=== PATIENT | male | born 1995 | race Caucasian/White ===

== ENCOUNTER 2018-09-04 16:26 | Inpatient (IN) | payer OTHER ==
[2018-09-04] MEDS ORDERED: HYDROmorphONE/DILAUDID 2 MG/ML INJ IVP ONE ×2 (16:29→17:04)
[2018-09-04] MEDS ORDERED: NS 1,000 ML IV ONE (16:29)
--- NOTE | 2018-09-04 16:33 | EDPHY ---
H & P Time Seen by Provider: 09/04/18 16:31 HPI/ROS: CHIEF COMPLAINT: Left hip pain HISTORY OF PRESENT ILLNESS: The patient is a 23-year-old man who was climbing on a rock wall when he fell approximately 10 ft to the ground. He was trying to avoid another climber and fell in an awkward position doing the splits. He felt a pop in his left hip and has had pain ever since. No knee pain or back pain. No head or neck injury. No foot or ankle pain. Severity: Severe Modifying factors: Improved with 100 mcg fentanyl by EMS REVIEW OF SYSTEMS: Constitutional: denies: chills, fever, recent illness, recent injury EENTM: denies: blurred vision, double vision, nose congestion Respiratory: denies: cough, shortness of breath Cardiac: denies: chest pain, irregular heart rate, lightheadedness, palpitations Gastrointestinal/Abdominal: denies: abdominal pain, diarrhea, nausea, vomiting, blood streaked stools Genitourinary: denies: dysuria, frequency, hematuria, pain Musculoskeletal: See HPI Skin: denies: lesions, rash, jaundice, bruising Neurological: denies: headache, numbness, paresthesia, tingling, dizziness, weakness Hematologic/Lymphatic: denies: blood clots, easy bleeding, easy bruising Immunologic/allergic: denies: HIV/AIDS, transplant 10 systems reviewed and negative except as noted EXAM: GENERAL: Well-appearing, well-nourished and in no acute distress. HEAD: Atraumatic, normocephalic. EYES: Pupils equal round and reactive to light, extraocular movements intact, sclera anicteric, conjunctiva are normal. ENT: TMs normal, nares patent, oropharynx clear without exudates. Moist mucous membranes. NECK: Normal range of motion, supple without lymphadenopathy or JVD. LUNGS: Breath sounds clear to auscultation bilaterally and equal. No wheezes rales or rhonchi. HEART: Regular rate and rhythm without murmurs, rubs or gallops. ABDOMEN: Soft, nontender, normoactive bowel sounds. No guarding, no rebound. No masses appreciated. BACK: No CVA tenderness, no spinal tenderness, step-offs or deformities EXTREMITIES: Left leg slightly shortened and internally rotated. Normal pulses and sensation distally. No knee pain. Primary complaining of left proximal humerus pain NEUROLOGICAL: Cranial nerves II through XII grossly intact. Normal speech, normal gait. 5/5 strength, normal movement in all extremities, normal sensation , normal reflexes PSYCH: Normal mood, normal affect. SKIN: Warm, dry, normal turgor, no visible rashes or lesions. Source: Patient, EMS Exam Limitations: No limitations - Medical/Surgical History Hx Asthma: No Hx Chronic Respiratory Disease: No Hx Diabetes: No Hx Cardiac Disease: No Hx Renal Disease: No Hx Cirrhosis: No Hx Alcoholism: No Hx HIV/AIDS: No - Family History Significant Family History: No pertinent family hx - Social History Alcohol Use: Sober Drug Use: None Constitutional: Initial Vital Signs Temperature (C) 36.9 C 09/04/18 16:26 Heart Rate 92 09/04/18 16:26 Respiratory Rate 16 09/04/18 16:26 Blood Pressure 129/90 H 09/04/18 16:26 O2 Sat (%) 100 09/04/18 16:26 O2 Delivery Mode Room Air Allergies/Adverse Reactions: No Known Allergies Allergy (Verified 09/04/18 17:24) Home Medications: Medication Instructions Recorded Herbals/Supplements -Info Only 1 ea PO DAILY 09/04/18 Multivitamins [Multivitamin (*)] 1 each PO DAILY 09/04/18 Medical Decision Making - Diagnostics Imaging: I viewed and interpreted images myself (Midshaft femur fracture) ED Course/Re-evaluation: Discussed the x-ray results and reviewed the images. I have paged Orthopedics. 5:00 p.m. discussed the case with Dr. Arroyo who will admit and plan to operate this evening. Differential Diagnosis: Partial list of the Differential diagnosis considered include but were not limited to; femur fracture, hip fracture, pelvic fracture and although unlikely based on the history and physical exam, I also considered dislocation, vascular injury, nerve injury. - Data Points Laboratory Results: Laboratory Results 09/04/18 16:37 09/04/18 16:37 Medications Given: Enoxaparin Sodium (Lovenox) 40 mg SC DAILY ANISA Stop: 03/04/19 08:59 Last Admin: 09/05/18 13:19 Dose: 40 mg Hydromorphone HCl (Dilaudid) 1 - 2 mg IVP Q1 PRN PRN Reason: PAIN, BREAKTHROUGH Stop: 09/14/18 18:42 Last Admin: 09/05/18 07:24 Dose: 1 mg Dextrose/Sodium Chloride (D5w 1/2 Ns) 1,000 mls @ 100 mls/hr IV CONT ANISA Stop: 03/03/19 18:59 Last Admin: 09/05/18 00:37 Dose: 1,000 mls Cefazolin Sodium/Dextrose (Ancef) 100 mls @ 200 mls/hr IV Q8H ANISA PRN Reason: Protocol Stop: 10/05/18 03:59 Last Admin: 09/05/18 13:19 Dose: 100 mls Oxycodone HCl (Oxycodone Ir) 5 - 15 mg PO Q3HRS PRN PRN Reason: Pain, Severe Able to Take PO Stop: 09/14/18 19:21 Last Admin: 09/05/18 11:34 Dose: 10 mg Discontinued Medications Bupivacaine HCl (Sensorcaine 0.5% Vial) Confirm Administered Dose 30 ml .ROUTE .STK-MED ONE Stop: 09/04/18 19:24 Last Admin: 09/04/18 22:30 Dose: 10 ml Hydromorphone HCl (Dilaudid) 1 mg IVP EDNOW ONE Stop: 09/04/18 16:30 Last Admin: 09/04/18 16:40 Dose: 1 mg Hydromorphone HCl (Dilaudid) 1 mg IVP EDNOW ONE Stop: 09/04/18 17:05 Last Admin: 09/04/18 17:18 Dose: 1 mg Sodium Chloride (Ns) 1,000 mls @ 0 mls/hr IV ONCE ONE; Wide Open PRN Reason: Protocol Stop: 09/04/18 16:30 Last Admin: 09/04/18 16:41 Dose: 1,000 mls Lactated Ringer's (Lr) 1,000 mls @ 0 mls/hr IV ONCE ONE PRN Reason: As Directed Stop: 09/04/18 18:56 Last Admin: 09/04/18 19:14 Dose: 1,000 mls Cefazolin Sodium/Dextrose (Ancef) 100 mls @ 200 mls/hr IV ONCALL ONE PRN Reason: Protocol Stop: 09/04/18 19:56 Last Admin: 09/04/18 20:10 Dose: 100 mls Labetalol HCl (Trandate Injection) 5 - 10 mg IVP Q10M PRN PRN Reason: PACU, Hypertension Stop: 09/05/18 00:00 Last Admin: 09/04/18 23:07 Dose: 5 mg Midazolam HCl (Versed) 2 mg IVP ONCALL ONE Stop: 09/04/18 19:38 Last Admin: 09/04/18 19:55 Dose: 2 mg Departure - Departure Disposition: [facility] Inpatient Acute Clinical Impression: Femur fracture, left Qualifiers: Encounter type: initial encounter Femur location: shaft Fracture type: closed Fracture morphology: oblique Fracture alignment: displaced Qualified Code(s): S72.332A - Displaced oblique fracture of shaft of left femur, initial encounter for closed fracture Condition: Fair
[2018-09-04 16:42] LABS: PLATELET COUNT 308 10^3/uL (150-400)
[2018-09-04 16:51] LABS: PROTIME(PATIENT) 13.4 SEC (12.0-15.0)
[2018-09-04] MEDS ORDERED: HYDROmorphONE/DILAUDID 1 MG/ML INJ ONE (17:15)
[2018-09-04] MEDS ORDERED: LR 1,000 ML IV ONE (18:55)
[2018-09-04] MEDS ORDERED: D5W 1/2 NS 1,000 ML IV SCH (19:00)
[2018-09-04] MEDS ORDERED: HYDROmorphONE/DILAUDID 2 MG/ML INJ ONE ×2 (19:21→22:15)
[2018-09-04] MEDS ORDERED: PROMETHAZINE HCL 25 MG/ML INJ IVP PRN ×2 (19:22→22:56)
[2018-09-04] MEDS ORDERED: NALOXONE HCL 0.4 MG/ML INJ IVP PRN ×2 (19:22→22:56)
[2018-09-04] MEDS ORDERED: ONDANSETRON 4 MG/2 ML VIAL IVP PRN (19:22)
[2018-09-04] MEDS ORDERED: HYDROmorphONE/DILAUDID 6 MG/30 ML PCA IV PRN (19:22)
[2018-09-04] MEDS ORDERED: BUPIVACAINE 0.5% 30 ML SDV ONE (19:23)
[2018-09-04] MEDS: HYDROmorphONE/DILAUDID 1 MG/ML INJ IVP PRN (19:23)
[2018-09-04] MEDS ORDERED: ceFAZolin 2 GM/DEXTROSE 100 ML IV ONE (19:27)
--- NOTE | 2018-09-04 19:29 | POSTOPPROG ---
Post Op Note Date of Operation: 09/04/18 Surgeon: Cristian Arroyo Anesthesia: GET(General Endotracheal) Pre-op Diagnosis: L femur fx Post-op Diagnosis: same Procedure: IM nail L femur Inf/Abcess present in the surg proc area at time of surgery?: No EBL: 50-100
[2018-09-04] MEDS ORDERED: D5W 1/2 NS W/ 20 KCl/L 1,000 ML IV SCH (19:30)
[2018-09-04] MEDS ORDERED: MIDAZOLAM 2 MG/2 ML VIAL IVP ONE (19:37)
--- NOTE | 2018-09-04 19:41 | PDANEPAE ---
ANE History of Present Illness Left FEMUR fx = ANE Past Medical History - Cardiovascular History Hx Hypertension: No Hx Arrhythmias: No Hx Chest Pain: No Hx Coronary Artery / Peripheral Vascular Disease: No Hx CHF / Valvular Disease: No Hx Palpitations: No - Pulmonary History Hx COPD: No Hx Asthma/Reactive Airway Disease: No Hx Recent Upper Respiratory Infection: No Hx Oxygen in Use at Home: No Hx Sleep Apnea: No - Endocrine History Hx Diabetes: No Hypothyroid: No Hyperthyroid: No Obesity: no ANE Review of Systems Review of systems is: negative Review of Systems: - Exercise capacity METS (RN): 4 METS ANE Patient History - Allergies Allergies/Adverse Reactions: No Known Allergies Allergy (Verified 09/04/18 17:24) - Home Medications Home Medications: Herbals/Supplements -Info Only 1 ea PO DAILY 09/04/18 [Last Taken 09/04/18] Multivitamins [Multivitamin (*)] 1 each PO DAILY 09/04/18 [Last Taken 09/04/18] - NPO status NPO Since - Liquids (Date): 09/04/18 NPO Since - Liquids (Time): 14:00 NPO Since - Solids (Date): 09/04/18 NPO Since - Solids (Time): 14:00 - Anes Hx Anes Hx: no prior problems - Smoking Hx Smoking Status: Never smoked Marijuana use: Yes - Alcohol Use Alcohol Use: Sober - Family Anes Hx Family Anes Hx: none ANE Labs/Vital Signs - Labs Result Diagrams: 09/04/18 16:37 09/04/18 16:37 - Vital Signs Blood Pressure: 143/98 Heart Rate: 106 Respiratory Rate: 19 O2 Sat (%): 96 Height: 172.72 cm Weight: 56.699 kg ANE Physical Exam - Airway Neck exam: FROM Mallampati Score: Class 3 Mouth exam: normal dental/mouth exam, small mouth opening - Pulmonary Pulmonary: no respiratory distress, no rales or rhonchi - Cardiovascular Cardiovascular: regular rate and rhythym, no murmur, rub, or gallop - ASA Status ASA Status: I, E ANE Anesthesia Plan Anesthesia Plan: general endotracheal anesthesia Specialized Airway: video laryngoscope
--- NOTE | 2018-09-04 19:45 | GHP ---
[f rep st] PREOP HISTORY AND PHYSICAL DATE OF ADMISSION: 09/04/2018 CHIEF COMPLAINT: Left thigh pain. HISTORY OF PRESENT ILLNESS: Patient is a 23-year-old who on the day of admission sustained a fall of approximately 10 feet while rock climbing, resulting in immediate thigh pain and deformity. He was taken to the emergency room directly from the climbing gym for evaluation. He denies any previous pr oblems or injuries relative to his leg. PAST MEDICAL HISTORY: Unremarkable. MEDICATIONS: Takes no medicines. ALLERGIES: Lists no known drug allergies. SOCIAL HISTORY: Negative for tobacco use. PHYSICAL EXAMINATION: GENERAL: He is alert and oriented x3, in mild distress secondary to his thigh pain. HEENT: Head is normocephalic. Pupils equal, round, reactive to light. Extraocular eye move ments intact. NECK: Supple. No JVD or lymphadenopathy. CHEST: Clear to auscultation. HEART: Re gular rate and rhythm. No murmurs or gallops. ABDOMEN: Soft, nontender, and nondistended. No orga nomegaly. GENITAL/RECTAL/BREASTS: Deferred. EXTREMITIES: There is swelling and tenderness in his left thigh. His leg is in a shortened internally rotated position. His distal neurovascular exam is grossly intact. IMAGING: AP and lateral radiographs of his femur show evidence of an oblique proximal diaphyseal fem ur fracture. ASSESSMENT: Left femur fracture. PLAN: Patient is scheduled to undergo closed intramedullary nailing. /[id number]/MODL
[2018-09-04] MEDS ORDERED: PROPOFOL/EMULSION 500 MG/50 ML BOTTLE IV ONE ×2 (19:55)
[2018-09-04] MEDS ORDERED: fentaNYL 250 MCG/5 ML INJ ONE (19:55)
[2018-09-04] MEDS ORDERED: GLYCOPYRROLATE 0.2 MG/1 ML VIAL ONE ×3 (19:56→22:29)
[2018-09-04] MEDS ORDERED: ROCURONIUM 50 MG/5 ML VIAL ONE ×2 (20:39)
[2018-09-04] MEDS ORDERED: ONDANSETRON 4 MG/2 ML VIAL ONE (22:13)
[2018-09-04] MEDS ORDERED: NEOSTIGMINE METHYLSULFATE 5 MG/5 ML SYR ONE (22:29)
[2018-09-04] MEDS ORDERED: LR 500 ML IV PRN (22:56)
[2018-09-04] MEDS ORDERED: HYDROmorphONE/DILAUDID 2 MG/ML INJ IVP PRN (22:56)
[2018-09-04] MEDS ORDERED: fentaNYL 100 MCG/2 ML INJ IVP PRN (22:56)
[2018-09-04] MEDS ORDERED: HYDROCODONE/APAP 5/325 TAB PO PRN (22:56)
[2018-09-04] MEDS ORDERED: LABETALOL HCL 20 MG/4 ML INJ IVP ONE (22:58)
[2018-09-04] MEDS ORDERED: LABETALOL HCL 5 MG/ML 20 ML MDV IVP PRN (23:00)
[2018-09-05] MEDS: oxyCODONE IR 5 MG TAB PO PRN ×8 (00:38→21:33)
[2018-09-05] MEDS: ceFAZolin 2 GM/DEXTROSE 100 ML IV SCH ×2 (03:05→13:19)
[2018-09-05] MEDS ORDERED: BETHANECHOL 5 MG TAB PO PRN (04:42)
--- NOTE | 2018-09-05 05:25 | GOP ---
[f rep st] OPERATIVE REPORT DATE OF OPERATION: 09/04/2018 SURGEON: Cristian Arroyo MD ANESTHESIA: General. PREOPERATIVE DIAGNOSIS: Left femur fracture. POSTOPERATIVE DIAGNOSIS: Left femur fracture. PROCEDURE PERFORMED: 1. Closed intramedullary nailing, left femur. 2. Intraoperative use of fluoroscopy. FINDINGS: ESTIMATED BLOOD LOSS: 100 mL. INDICATIONS: Patient is a 23-year-old who fell rock climbing, resulting in a proximal diaphyseal lef t femur fracture. Based on the nature of his injury, it was recommended that operative treatment con sisting of closed intramedullary nailing be pursued. The patient acknowledged he understood the pote ntial risks of the operation including, but not limited to, bleeding, infection, neurovascular damage , loss of limb or limb function, malunion, nonunion, need for hardware removal, pain or functional li mitations despite operative treatment and anesthetic risks. He acknowledged he understood the potent ial risks of the planned procedure and postoperative plan well, and had all questions answered prior to surgery. He gave consent for the operative procedure. DESCRIPTION OF PROCEDURE: The patient was brought to the operating room after IV antibiotics were ad ministered. The general anesthetic was administered. The patient was transferred to the radiolucent fracture table. The patient was then transferred to a right lateral decubitus position with beanbag support, axillary roll, and padding of all bony prominences. The left lower extremity was prepped a nd draped in standard sterile fashion. A longitudinal incision was made in line with the femur along the gluteal region proximal to the femur. Skin and subcutaneous tissue were sharply incised. The g luteal fascia was incised with electrocautery unit. The fibers of the gluteal muscles were split wit h dissection down to the piriformis fossa with a fine-tipped hemostat. A guide pin from the Synthes femoral nail was placed at the optimal starting point, centered on the lateral view and flushed up ag ainst the medial aspect of the greater trochanter on the AP view. The coring reamer was utilized to create a starting hole. The ball-tipped guide danny was then placed down the intramedullary canal. Cl osed reduction techniques were performed during the guide danny passing until the danny passed down the d istal segment across the butterfly fragment and into the distal aspect of the femur. The guide danny p osition was confirmed fluoroscopically on AP and lateral images. Attempted reaming with an initial 8 mm end-cutting reamer was tried. The patient had a very narrow canal, and this was somewhat difficu lt. The 7 mm reamer was then utilized to make the initial pass. Reaming was performed sequentially in 0.5 mm increments up to 10-1/2 mm. A 9 mm x 360 mm long Synthes femoral nail was then impacted in to place. The canal was still tight. The nail was removed after a very small amount of passing down to the cortical isthmus and an additional reaming up to 11 mm was performed. The nail was then able to be passed with relatively tight fit, but greater ease. Nail position was confirmed. Using the a iming guide, 2 proximal locking bolts, 1 static, 1 dynamic were placed. The reduction was fine-tuned , correcting for length and rotation. With the leg held in appropriately reduced position distally u nder freehand technique, 2 distal locking bolts were placed. Fluoroscopic views confirmed favorable locking bolt, nail, and reduction. Attention was directed toward closure. The gluteal fascia was closed with 2-0 Vicryl suture in inter rupted fashion. Subcutaneous tissue was closed with 3-0 Vicryl suture in interrupted fashion. Skin was closed with skin adria. 0.5% Marcaine without epinephrine was injected in the wound sites. Th e wounds were dressed with sterile Adaptic, 4 x 4 and Hypafix tape. The patient was then transferred to a supine position. Rotation and length were checked. The length was felt to be symmetric. Rota tion was felt to be within 5 degrees of the opposite side. The patient was taken to the recovery radha , extubated in stable condition postoperatively. All sponge, needle, and instrument counts were rep orted as being correct. DRAINS: None. COMPLICATIONS: None. PLAN: The patient will be admitted for pain management and gait training. He will be touchdown weig htbearing on his operative extremity. /[id number]/MODL
[2018-09-05] MEDS: HYDROmorphONE/DILAUDID 1 MG/ML INJ IVP PRN ×2 (07:24→13:57)
--- NOTE | 2018-09-05 07:24 | POSTANESTH ---
Post Anesthetic Evaluation Cardiovascular Status: Normal, Stable Respiratory Status: Normal, Stable Level of Consciousness/Mental Status: Can Participate in Eval Pain Control: Adequate, Prn Tx Ordered Nausea/Vomiting Control: Adequate, Prn Tx Ordered Complications Possibly Related to Anesthesia: Other, See Comments (Required urinary catheter. Voiding without catheter now)
--- NOTE | 2018-09-05 08:08 | SOAPPROG ---
SOAP Progress Note Assessment/Plan: Assessment: S/P IM nail L femur Pain tolerable on po Izabel diet LLE dressing intact, no D/C Length length and rotation ~ = Distal NVI Plan: OOB/PT Touch down WB LLE 09/05/18 08:05 Objective: Vital Signs Temp Pulse Resp BP Pulse Ox 36.9 C 83 16 128/82 H 91 L 09/05/18 07:58 09/05/18 07:58 09/05/18 07:58 09/05/18 07:58 09/05/18 07:58 09/04/18 09/05/18 09/06/18 05:59 05:59 05:59 Intake Total 3450 Output Total 2150 Balance 1300 PT 13.4 SEC (12.0-15.0) 09/04/18 16:37 INR 1.00 (0.83-1.16) 09/04/18 16:37 ICD10 Worksheet Patient Problems: Problems Problem Status Onset Femur fracture, left Acute
--- NOTE | 2018-09-05 12:20 | TRAUMAPN ---
Trauma Progress Note - Problem/Surgery Performed (1) Activity, mountain climbing, rock climbing and wall climbing Assessment/Plan: mechanism of injury with isolated LLE injury (2) Femur fracture, left Assessment/Plan: s/p IM [place] Dr. Arroyo/doing well post op Qualifiers: Encounter type: initial encounter Femur location: shaft Fracture type: closed Fracture morphology: oblique Fracture alignment: displaced Qualified Code(s): S72.332A - Displaced oblique fracture of shaft of left femur , initial encounter for closed fracture (3) Postoperative urinary retention Assessment/Plan: resolving and likely due to anesthesia and narcotics. if symptoms recur or persist a short course of Tamsulosin may be of benefit Assessment/Plan: s/p fall at climbing gym 09/04 s/p IM rodding L prox femur fx Dr. Arroyo 09/04 no other apparent injuries/recovering with some urinary retention Plan: weight bearing and rehab per Dr. Arroyo Reid is on prophylactic LMWH SC for VTE prophylaxis PT/OT bowel program Subjective: Reid is resting comfortably post IM rodding for proximal left femur fracture. He was admitted by Dr. Arroyo last night after he fell at a climbing gym from a height of about 10 feet landing with his legs split. He was transported to [facility] and found to have a left proximal femur fracture. Trauma service consult request was initiated today by [facility] nursing based on his mechanism of injury. Reid had post op urinary retention requiring a straight cath x 2 and has subsequently been able to void. His pain is controlled and he has eaten breakfast. He denies pain other than his left leg and specifically denies BASS, visual disturbances, LOC, chest pain, abdominal pain, back pain, weakness/paresthesias Objective: Vital Signs Temp Pulse Resp BP Pulse Ox 37.0 C 103 H 17 122/74 H 94 09/05/18 11:20 09/05/18 11:20 09/05/18 11:20 09/05/18 11:20 09/05/18 11:20 09/04/18 09/05/18 09/06/18 05:59 05:59 05:59 Intake Total 3450 Output Total 2150 1450 Balance 1300 -1450 PT 13.4 SEC (12.0-15.0) 09/04/18 16:37 INR 1.00 (0.83-1.16) 09/04/18 16:37 - C-Spine Clearance Cervical Spine Cleared: Yes Provider who Cleared Cervical Spine: Deepti Physical Exam - Physical Exam General Appearance: alert, no apparent distress EENT: normal ENT inspection Neck: non-tender, full range of motion, supple Respiratory: lungs clear, normal breath sounds Cardiac/Chest: regular rate, rhythm, other (chest non-tender to anterior/ lateral compression) Peripheral Pulses: 3+: dorsalis-pedis (L), 4+: dorsalis-pedis (R) Abdomen: non-tender, soft Male Genitalia: deferred Rectal: deferred Back: Other (non-tender to palpation cervical, thoracic, lumbar spine) Extremities: other (surgical dressing intact LLE, no other extremity injury/ deformity/tenderness) Neuro/Psych: no motor/sensory deficits, alert, normal mood/affect, oriented x 3 Time Spent w/Patient (minutes): 30
--- NOTE | 2018-09-05 12:27 | PDMN ---
Medical Necessity Medical necessity: MCG: S470 femur fx, shaft internal fixation- 2 days; 23 yo M fell while rock climbing resulting in oblique proximal diaphyseal L femur fx., OP: closed IM Nailing L femur,
[2018-09-05] MEDS: ENOXAPARIN 40 MG/0.4 ML SYR SC SCH (13:19)
--- NOTE | 2018-09-05 14:43 | ASMTCMCOM ---
CM Note CM Note Notes: Chart reviewed. Pt is a 23yr old with lt femur fx following a fall rock climbing. PT & OT cleared for Discharge. Pt will do Outpatient Rehab. CM available if needs arise. Plan: Home independently with Outpatient Therapy Date Signed: 09/05/2018 02:42 PM Electronically Signed By:Fidelia Olivia RN
[2018-09-06] MEDS: oxyCODONE IR 5 MG TAB PO PRN ×3 (07:45→14:38)
[2018-09-06 08:02] VITALS: BP 138/88
[2018-09-06] MEDS: ENOXAPARIN 40 MG/0.4 ML SYR SC SCH (10:01)
--- NOTE | 2018-09-06 11:52 | SOAPPROG ---
SOAP Progress Note Assessment/Plan: Assessment: S/P IM nail L femur Pain tolerable on po Izabel diet LLE dressing intact, no D/C Length length and rotation ~ = Distal NVI Plan: OOB/PT Touch down WB LLE 09/05/18 08:05 09/06/18 11:49 Pain improving Able to void urine Izabel po Incisions clean, dressings changed Limb alignment still appears symmetric NV Unchanged D/C Home Objective: Vital Signs Temp Pulse Resp BP Pulse Ox 37.2 C 114 H 15 138/88 H 94 09/06/18 08:00 09/06/18 08:00 09/06/18 08:00 09/06/18 08:00 09/06/18 08:00 09/05/18 09/06/18 09/07/18 05:59 05:59 05:59 Intake Total 3450 350 Output Total 2150 2600 Balance 1300 -2250 PT 13.4 SEC (12.0-15.0) 09/04/18 16:37 INR 1.00 (0.83-1.16) 09/04/18 16:37 ICD10 Worksheet Patient Problems: Problems Problem Status Onset Activity, mountain climbing, rock climbing and wall climbing Acute Femur fracture, left Acute Postoperative urinary retention Acute
--- NOTE | 2018-09-06 12:06 | ASMTLACE ---
ES Length of stay for Answers: 1 day current admission Acuity / Level of Answers: Yes Care: Did the patient have an inpatient admission? # of Emergency department Answers: 1-2 visits in the last 6 months Score: 5 Date Signed: 09/06/2018 12:05 PM Electronically Signed By:Enid Durham RN
--- NOTE | 2018-09-06 12:09 | ASMTDCNOTE ---
Case Management Discharge Discharge Order Complete? Answers: Yes Patient to Obtain Answers: via Family Medications Transportation Arranged Answers: Family/Friends Family Notified Answers: Yes Discharge Comments Notes: Patient medically cleared for discharge to home. He will have outpatient therapies. No needs at this time. Date Signed: 09/06/2018 12:09 PM Electronically Signed By:Enid Durham RN
--- NOTE | 2018-09-06 12:17 | ASMTCMCOM ---
CM Note CM Note Notes: Patient medically cleared for discharge. No needs. Will have outpatient therapy. Home with no needs. Date Signed: 09/06/2018 12:16 PM Electronically Signed By:Enid Durham RN
--- NOTE | 2018-09-06 17:58 | GDS ---
[f rep st] DISCHARGE SUMMARY ADMISSION DIAGNOSIS: Left femur fracture. DISCHARGE DIAGNOSIS: Left femur fracture. OPERATION PERFORMED: On 09/04/2018, the patient underwent closed intramedullary nailing, left femur. CONSULTS: Physical Therapy and Occupational Therapy. HISTORY RELATIVE TO ADMISSION: The patient is a 23-year-old healthy male who sustained a fall while climbing, resulting in a closed diaphyseal femur fracture. HOSPITAL COURSE: The patient was taken to the operating room shortly [facility] for closed intramedullary nailing. His postoperative course was unremarkable. He was take n to the regular med/surg floor. He did have some initial difficulty voiding, but this resolved by p ostoperative day 2. His pain was well controlled on oral analgesics. He progressed satisfactorily i n his rehab efforts. DISCHARGE DISPOSITION: Discharged home. Diet regular. Touchdown weightbearing left lower extremity . Keep incision clean, dry, and intact. Follow up in 1 week. /[id number]/MODL
== END 2018-09-06 15:45 | disposition home or self-care (01) | DRG 482 ==
LOC: OBSVTOIN 17:04 → F3N 17:57
PROVIDERS: ADMIT Orthopaedic Surgery Foot and Ankle Surgery; ATTEND Orthopaedic Surgery Foot and Ankle Surgery
PROC: 0QS906Z Reposition Left Femoral Shaft with Intramedullary Internal Fixation Device, Open Approach (ICD-10-PCS; principal; 2018-09-04 20:00)
DX: S72.332A Displaced oblique fracture of shaft of left femur, initial encounter for closed fracture (principal); Y93.31 Activity, mountain climbing, rock climbing and wall climbing; Y92.89 Other specified places as the place of occurrence of the external cause; W17.89XA Other fall from one level to another, initial encounter; R33.9 Retention of urine, unspecified
CPT/HCPCS: 96374; 97161-GP; 97165-GO; 97535-GO; C1713; G0480; J0690; J1170; J1650; J2250; J2405; J2704; J2710; J3010